=== PATIENT | female | born 1935 | race Caucasian/White ===

== ENCOUNTER → 2018-08-09 | Outpatient (CLI) | payer MEDICARE | END | disposition home or self-care (01) | LOC: LAB 08:51 | PROVIDERS: ATTEND Internal Medicine Gastroenterology | DX: R10.811 Right upper quadrant abdominal tenderness (principal); R10.812 Left upper quadrant abdominal tenderness | CPT/HCPCS: 36415; 82150; 83690; 83993; 87338 ==

== ENCOUNTER → 2018-10-05 | Outpatient (CLI) | payer MEDICARE, OTHER | END | disposition home or self-care (01) | LOC: CFH 10:06 | PROVIDERS: ATTEND Nurse Practitioner Family | DX: M85.88 Other specified disorders of bone density and structure, other site (principal) | CPT/HCPCS: 77080 ==

== ENCOUNTER → 2018-11-07 | Outpatient (CLI) | payer MEDICARE, OTHER ==
[2018-11-07 08:29] LABS: ANION GAP 4 mmol/L (5-15); CALCIUM 9.9 mg/dL (8.5-10.1); CHLORIDE 107 mmol/L (98-107); CREATININE 0.87 mg/dL (0.55-1.02)
== END | disposition home or self-care (01) ==
LOC: LAB 07:55
PROVIDERS: ATTEND Internal Medicine Cardiovascular Disease
DX: E78.2 Mixed hyperlipidemia (principal); I10 Essential (primary) hypertension; I48.91 Unspecified atrial fibrillation
CPT/HCPCS: 36415; 80048

== ENCOUNTER 2018-11-12 14:13 | Emergency (ER) | payer MEDICARE, OTHER ==
[~2018-11-12] VITALS: Ht 154.9 cm; Wt 48.5 kg
[2018-11-12 15:13] LABS: BASOPHILS # (AUTO) 0.04 x10^3/uL (0-0.1); BASOPHILS % (AUTO) 1 % (0-1); EOSINOPHILS # (AUTO) 0.06 x10^3/uL (0-0.4); EOSINOPHILS % (AUTO) 1 % (1-7); LYMPHOCYTES # (AUTO) 1.56 x10^3/uL (1-3.4); LYMPHOCYTES % (AUTO) 18 % (22-44); MD NO; MEAN CORPUSCULAR HGB CONC 33.8 g/dL (32.4-35.8); MEAN CORPUSCULAR VOLUME 97.9 fL (80-100); MEAN PLATELET VOLUME 9.1 fL (7.4-10.4); MONOCYTES % (AUTO) 7 % (2-9); NEUTROPHILS # (AUTO) 6.19 x10^3/uL (1.8-6.8); NEUTROPHILS % (AUTO) 73 % (42-75); PLATELET COUNT 188 x10^3/uL (130-400); RED BLOOD COUNT 3.75 x10^6/uL (3.82-5.3); RED CELL DISTRIBUTION WIDTH 14.5 % (9.6-15.2)
--- NOTE | 2018-11-12 15:15 | NUR ---
OPERATORS TEACHER: [place] to send tech to interrogate pacemaker
--- NOTE | 2018-11-12 15:19 | NUR ---
LABS & CXR DONE. LATITUDE CONSULT COMMUINICATOR READING INITIATED. PT DENIES CP CURRENTLY.
[2018-11-12 15:21] LABS: ALANINE AMINOTRANSFERASE 24 U/L (12-78); ALBUMIN 3.8 g/dL (3.4-5.0); ANION GAP 6 mmol/L (5-15); CALCIUM 8.8 mg/dL (8.5-10.1); CHLORIDE 107 mmol/L (98-107); CREATININE 1.01 mg/dL (0.55-1.02)
--- NOTE | 2018-11-12 15:25 | NUR ---
CALLED [employer] ([phone]), SPOKE W/ ELVIN. PER ELVIN, TRANSMISSION WAS RECEIVED; HE'LL PAGE REP TO CALL ERP WITH REPORT REVIEW.
[2018-11-12 15:26] LABS: ALKALINE PHOSPHATASE 74 U/L (45-117); BILIRUBIN,TOTAL 0.7 mg/dL (0.2-1.0); TOTAL PROTEIN 7.5 g/dL (6.4-8.2); TROPONIN I < 0.015 ng/mL (0.000-0.045)
--- NOTE | 2018-11-12 15:28 | NUR ---
PT A&OX4, RESP EVEN & UNLABORED, SPEECH CLEAR, SKIN WNL. DENIES CP CURRENTLY. CARDIAC & VS MONITORING CONTINUING; PACED, RATE: 73. PT STATES RATE IS SET AT 70. PT'S FEMALE FRIEND IN ROOM; STATES SHE CONTACTED PT'S HOSPITALITY ASSOCIATE (DR SILVERIO) WHO ADVISED ED EVAL.
[2018-11-12] MEDS ORDERED: SPIR25TA5 PO (16:04)
[2018-11-12] MEDS ORDERED: CEPH-376 PO (16:04)
[2018-11-12] MEDS ORDERED: CHOL500050 PO (16:04)
[2018-11-12] MEDS ORDERED: VIT1CAPS42 PO (16:04)
[2018-11-12] MEDS ORDERED: IBAN150T PO (16:04)
[2018-11-12] MEDS ORDERED: AVASTIN IV (16:04)
[2018-11-12] MEDS ORDERED: SIMV40TA3 PO (16:04)
[2018-11-12] MEDS ORDERED: LOSA25TA25 PO (16:04)
[2018-11-12] MEDS ORDERED: RIVA20TA PO (16:04)
[2018-11-12] MEDS ORDERED: SERT50TA28 PO (16:04)
[2018-11-12] MEDS ORDERED: CARV-39 PO (16:04)
[2018-11-12] MEDS ORDERED: OMEG1CAP23 PO (16:04)
[2018-11-12] MEDS ORDERED: DIGO250T PO (16:04)
--- NOTE | 2018-11-12 16:06 | NUR ---
CALLED [facility] ([place] FOR ALLERGY LIST; PER NATIONAL [employer]PELINT ANALYST PT HAS NKDA.
[2018-11-12 16:26] VITALS: BP 113/60
== END 2018-11-12 16:28 | disposition home or self-care (01) ==
LOC: ED 15:56
DX: I48.92 Unspecified atrial flutter (principal); Z95.0 Presence of cardiac pacemaker
CPT/HCPCS: 36415; 71045; 80053; 80162; 83880; 84484; 85025; 93005; 99284

== ENCOUNTER → 2018-11-18 | Outpatient (CLI) | payer MEDICARE, OTHER ==
[~2018-11-18] MED LIST: AVASTIN IV; CARV-39 PO; CEPH-376 PO; CHOL500050 PO; DIGO250T PO; IBAN150T PO; LOSA25TA25 PO; OMEG1CAP23 PO; RIVA20TA PO; SERT50TA28 PO; SIMV40TA3 PO; SPIR25TA5 PO; VIT1CAPS42 PO
[2018-11-18 08:57] LABS: ANION GAP 7 mmol/L (5-15); CALCIUM 9.2 mg/dL (8.5-10.1); CHLORIDE 107 mmol/L (98-107); CREATININE 0.89 mg/dL (0.55-1.02)
== END | disposition home or self-care (01) ==
LOC: LAB 08:34
PROVIDERS: ATTEND Internal Medicine Cardiovascular Disease
DX: I48.91 Unspecified atrial fibrillation (principal); E78.2 Mixed hyperlipidemia; I10 Essential (primary) hypertension
CPT/HCPCS: 36415; 80048

== ENCOUNTER → 2019-01-12 | Outpatient (CLI) | payer MEDICARE, OTHER ==
[~2019-01-12] MED LIST changes: -IBAN150T PO; +IBAN150T15 PO
[2019-01-12 07:52] LABS: ALANINE AMINOTRANSFERASE 25 U/L (12-78); ANION GAP 4 mmol/L (5-15); CALCIUM 9.2 mg/dL (8.5-10.1); CHLORIDE 113 mmol/L (98-107); CREATININE 0.91 mg/dL (0.55-1.02)
[2019-01-12 07:53] LABS: BASOPHILS # (AUTO) 0.06 x10^3/uL (0-0.1); BASOPHILS % (AUTO) 1 % (0-1); EOSINOPHILS # (AUTO) 0.11 x10^3/uL (0-0.4); EOSINOPHILS % (AUTO) 2 % (1-7); LYMPHOCYTES # (AUTO) 1.61 x10^3/uL (1-3.4); LYMPHOCYTES % (AUTO) 24 % (22-44); MD NO; MEAN CORPUSCULAR HEMOGLOBIN 33.7 pg (27.0-34.8); MEAN CORPUSCULAR HGB CONC 32.9 g/dL (32.4-35.8); MEAN CORPUSCULAR VOLUME 102.3 fL (80-100); MEAN PLATELET VOLUME 8.8 fL (7.4-10.4); MONOCYTES # (AUTO) 0.49 x10^3/uL (0.2-0.8); MONOCYTES % (AUTO) 7 % (2-9); NEUTROPHILS # (AUTO) 4.41 x10^3/uL (1.8-6.8); NEUTROPHILS % (AUTO) 66 % (42-75); PLATELET COUNT 157 x10^3/uL (130-400); RED CELL DISTRIBUTION WIDTH 14.1 % (9.6-15.2)
[2019-01-12 07:54] LABS: ALKALINE PHOSPHATASE 89 U/L (45-117); BILIRUBIN,TOTAL 0.8 mg/dL (0.2-1.0); TOTAL PROTEIN 7.4 g/dL (6.4-8.2)
[2019-01-12 08:01] LABS: MICROSCOPIC NOT IND
[2019-01-12 08:05] LABS: CREATININE,URINE RANDOM 45.5 mg/dL
== END | disposition home or self-care (01) ==
LOC: LAB 07:15
PROVIDERS: ATTEND Internal Medicine Nephrology
DX: R94.4 Abnormal results of kidney function studies (principal)
CPT/HCPCS: 36415; 80053; 81003; 82570; 84100; 84156; 85025

== ENCOUNTER 2019-03-08 08:18 | Outpatient (CLI) | payer MEDICARE ==
[~2019-03-08 08:18] MED LIST changes: +BEVA25VI IV; +FURO20TA3 PO; +LACT1CAP35 PO
[2019-03-08 08:51] LABS: ANION GAP 5 mmol/L (5-15); CALCIUM 9.6 mg/dL (8.5-10.1); CHLORIDE 107 mmol/L (98-107)
[2019-03-08 08:53] LABS: CHOLESTEROL, TOTAL 88 mg/dL (140-239); CREATININE 0.99 mg/dL (0.55-1.02); TRIGLYCERIDES 74 mg/dL (50-200); VLDL CHOLESTEROL 15 mg/dL (0-25)
[2019-03-08 08:56] LABS: CHOL/HDL RATIO 2.3; HDL CHOL % 43 % (28-40); HDL CHOLESTEROL (DIRECT) 38 mg/dL (40-60); LDL CHOLESTEROL,CALCULATED 35 mg/dL (54-169); LDL/HDL RATIO 0.9 (0.5-3.0)
== END 2019-03-08 23:59 | disposition home or self-care (01) ==
LOC: LAB 08:18
PROVIDERS: ATTEND Physician Assistant Medical
DX: E78.2 Mixed hyperlipidemia (principal); E87.0 Hyperosmolality and hypernatremia; I21.4 Non-ST elevation (NSTEMI) myocardial infarction; I25.10 Atherosclerotic heart disease of native coronary artery without angina pectoris; I11.0 Hypertensive heart disease with heart failure; I50.9 Heart failure, unspecified; I42.9 Cardiomyopathy, unspecified; R60.9 Edema, unspecified; I48.91 Unspecified atrial fibrillation
CPT/HCPCS: 36415; 80048; 80061

== ENCOUNTER → 2019-03-13 | Outpatient (CLI) | payer MEDICARE ==
[2019-03-13 07:42] LABS: BASOPHILS # (AUTO) 0.06 x10^3/uL (0-0.1); BASOPHILS % (AUTO) 1 % (0-1); EOSINOPHILS # (AUTO) 0.08 x10^3/uL (0-0.4); EOSINOPHILS % (AUTO) 1 % (1-7); LYMPHOCYTES # (AUTO) 1.37 x10^3/uL (1-3.4); LYMPHOCYTES % (AUTO) 19 % (22-44); MD NO; MEAN CORPUSCULAR HEMOGLOBIN 32.8 pg (27.0-34.8); MEAN CORPUSCULAR HGB CONC 32.4 g/dL (32.4-35.8); MEAN PLATELET VOLUME 9.5 fL (7.4-10.4); MONOCYTES # (AUTO) 0.49 x10^3/uL (0.2-0.8); MONOCYTES % (AUTO) 7 % (2-9); NEUTROPHILS # (AUTO) 5.24 x10^3/uL (1.8-6.8); NEUTROPHILS % (AUTO) 72 % (42-75); PLATELET COUNT 120 x10^3/uL (130-400); RED CELL DISTRIBUTION WIDTH 13.9 % (9.6-15.2)
[2019-03-13 07:51] LABS: ALANINE AMINOTRANSFERASE 21 U/L (12-78); ALBUMIN 4.3 g/dL (3.4-5.0); ANION GAP 5 mmol/L (5-15); CALCIUM 9.6 mg/dL (8.5-10.1); CHLORIDE 108 mmol/L (98-107)
[2019-03-13 07:53] LABS: ALKALINE PHOSPHATASE 87 U/L (45-117); BILIRUBIN,TOTAL 1.2 mg/dL (0.2-1.0); TOTAL PROTEIN 7.9 g/dL (6.4-8.2)
[2019-03-13 08:02] LABS: MICROSCOPIC INDICATED
== END | disposition home or self-care (01) ==
LOC: LAB 07:25
PROVIDERS: ATTEND Internal Medicine Nephrology
DX: N18.2 Chronic kidney disease, stage 2 (mild) (principal)
CPT/HCPCS: 36415; 80053; 81001; 82570; 84156; 85025

== ENCOUNTER → 2020-07-24 | Outpatient (CLI) | payer MEDICARE ==
[~2020-07-24] MED LIST changes: -DIGO250T PO; +DIGO250T3 PO; +SIMV40TA20 PO; -SIMV40TA3 PO
== END | disposition home or self-care (01) ==
LOC: CFH 06:57
PROVIDERS: ATTEND Registered Nurse
DX: I08.3 Combined rheumatic disorders of mitral, aortic and tricuspid valves (principal); I42.9 Cardiomyopathy, unspecified
CPT/HCPCS: 93306

== ENCOUNTER 2020-10-16 21:05 | Emergency (ER) | payer MEDICARE ==
[~2020-10-16] VITALS: Ht 154.9 cm; Wt 46.4 kg
--- NOTE | 2020-10-16 21:10 | NUR ---
ERP AT BEDSIDE FOR ASSESSMENT.
--- NOTE | 2020-10-16 21:37 | NUR ---
PT TO CT SCAN, AND SON IS HERE AND AT BEDSIDE
[2020-10-16] MEDS ORDERED: LIDOCAINE 1%-EPI 1:100K, 20ML INFIL ONE (22:30)
--- NOTE | 2020-10-16 22:43 | NUR ---
CLEANED LEFT ARM SKIN TEAR WITH SALINE AND WRAPPED WITH GAUZE. ERP ADMIN LIDOCAINE TO HEMATOMA ON HEAD, AND CLEANED WITH SALINE AND SOAP AND WATER BY THIS RN. ERP AT BEDSIDE FOR STICHES
[2020-10-16] MEDS ORDERED: NEOSPORIN OINT. PKT 1 PACKET ONE (22:55)
[2020-10-16] MEDS ORDERED: LIDOCAINE 1%-EPI 1:100K, 30ML INFIL ONE (23:00)
[2020-10-16 23:20] VITALS: BP 107/69
== END 2020-10-16 23:36 | disposition home or self-care (01) ==
LOC: ED 21:54
DX: S06.0X0A Concussion without loss of consciousness, initial encounter (principal); S01.81XA Laceration without foreign body of other part of head, initial encounter; M79.601 Pain in right arm; I50.9 Heart failure, unspecified; E78.5 Hyperlipidemia, unspecified; I51.7 Cardiomegaly; Z90.49 Acquired absence of other specified parts of digestive tract; Z90.710 Acquired absence of both cervix and uterus; X58.XXXA Exposure to other specified factors, initial encounter; Y93.89 Activity, other specified; Y92.89 Other specified places as the place of occurrence of the external cause; Y99.8 Other external cause status
CPT/HCPCS: 12051; 70450; 71045; 99284